=== PATIENT | male | born 2000 | race Caucasian/White ===

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

== ENCOUNTER 2020-09-04 12:33 | Emergency (ER) | payer OTHER, SELFPAY | END 2020-09-04 13:36 | disposition home or self-care (01) | LOC: MADERS 12:33 | DX: S93.401A Sprain of unspecified ligament of right ankle, initial encounter (principal); F17.229 Nicotine dependence, chewing tobacco, with unspecified nicotine-induced disorders; X58.XXXA Exposure to other specified factors, initial encounter ==

== ENCOUNTER 2021-01-11 19:37 | Emergency (ER) | payer SELFPAY ==
[~2021-01-11 19:37] MED LIST: Sodium Chloride 0.9% 1,000 ML BAG ONE
[2021-01-11 21:11] LABS: Band 15 % (5-11); Hemoglobin 14.9 g/dL (14.0-18.0); Lymphocytes 10 % (28-48); MDiff Complete? YES; Mean Corpuscular HGB CONC 32.5 g/dL (32.0-36.0); Mean Corpuscular Hemoglobin 28.8 pg (25.0-35.0); Mean Corpuscular Volume 88.7 fL (78.0-98.0); Mean Platelet Volume 6.3 fL (7.4-10.4); Monocytes 10 % (0-4); Neutrophil 65 % (31-61); Platelet Count 260 thou/uL (130-400); RBC Distribution Width 12.1 % (11.5-14.5); RBC Morphology Normal; Red Blood Cell (RBC) Count 5.16 mill/uL (4.00-5.20); White Blood Cell (WBC) Count 20.9 thou/uL (4.8-10.8)
[2021-01-11 21:14] LABS: Anion Gap 16 mmol/L (10-20); BUN (Urea Nitrogen) 11 mg/dL (8.9-20.6); Calc. Creatinine Clearance 0 mL/min (70-130); Calcium 9.5 mg/dL (7.8-10.44); Carbon Dioxide 24 mmol/L (22-29); Chloride 98 mmol/L (98-107); Glucose 102 mg/dL (70-105); Potassium 3.8 mmol/L (3.5-5.1); Sodium 134 mmol/L (136-145)
[2021-01-11] MEDS ORDERED: HYDROcodone/Acetaminophen 5/325 mg Tablet ONE (21:20)
== END 2021-01-11 22:28 | disposition short-term general hospital (02) ==
LOC: MADERS 19:37
DX: R00.0 Tachycardia, unspecified (principal); D72.829 Elevated white blood cell count, unspecified; M54.50 Low back pain, unspecified; F17.210 Nicotine dependence, cigarettes, uncomplicated; F17.290 Nicotine dependence, other tobacco product, uncomplicated
CPT/HCPCS: 71046; 80048; 83605; 85025; 85652; 86140; J7050